=== PATIENT | female | born 1950 | race Caucasian/White ===

== ENCOUNTER → 2016-06-01 | Outpatient (CLI) | payer MEDICARE, BC ==
[~2016-06-01] MED LIST: ASPIRIN E.C. 8181 MG PO; CALTRATE 600600 MG PO; COUMADIN 3MG3 MG/TAB PO; COUMADIN3 MG PO; COZAAR100 MG PO; EXFORGE 10/320 PO; FIORINAL 325 MG1 CAP PO; GLUCOSAMINE MSM1 TAB PO; METOPROLOL SUCC50 M1 PO; MULTIPLE VITAMI1 CAP PO; NATURE'S BLEN1000 MG PO; NORVASC 10MG10 MG PO; TOPROL XL 50MG50 MG PO; VITAMIN D31000 I1 PO
== END ==
LOC: COL.RAD 07:53
DX: M79.644 Pain in right finger(s) (principal); M13.841 Other specified arthritis, right hand
CPT/HCPCS: J3301; Q9967

== ENCOUNTER → 2017-01-24 | Outpatient (CLI) | payer MEDICARE, BC | LOC: MC.RAD 10:11 | DX: Z12.31 Encounter for screening mammogram for malignant neoplasm of breast (principal) ==

== ENCOUNTER → 2018-02-07 | Outpatient (CLI) | payer MEDICARE, BC | LOC: MC.RAD 10:09 | DX: Z12.31 Encounter for screening mammogram for malignant neoplasm of breast (principal) ==

== ENCOUNTER → 2019-02-08 | Outpatient (CLI) | payer MEDICARE, BC | LOC: MC.RAD 08:35 | DX: Z12.31 Encounter for screening mammogram for malignant neoplasm of breast (principal) ==

== ENCOUNTER → 2019-02-14 | Outpatient (CLI) | payer MEDICARE, BC | LOC: COL.RAD 09:26 | DX: E04.2 Nontoxic multinodular goiter (principal); E21.3 Hyperparathyroidism, unspecified ==

== ENCOUNTER → 2020-02-10 | Outpatient (CLI) | payer MEDICARE, BC | LOC: MC.RAD 08:44 | DX: Z12.31 Encounter for screening mammogram for malignant neoplasm of breast (principal); N63.21 Unspecified lump in the left breast, upper outer quadrant; N63.11 Unspecified lump in the right breast, upper outer quadrant ==

== ENCOUNTER → 2020-02-12 | Outpatient (CLI) | payer MEDICARE, BC | LOC: MC.RAD 14:55 | DX: N63.20 Unspecified lump in the left breast, unspecified quadrant (principal) ==

== ENCOUNTER → 2021-02-10 | Outpatient (CLI) | payer MEDICARE, BC | LOC: MC.RAD 10:19 | DX: Z12.31 Encounter for screening mammogram for malignant neoplasm of breast (principal) ==